=== PATIENT | male | born 1945 | race Asian ===

== ENCOUNTER 2017-01-08 06:47 | Day surgery (SDC) | payer MEDICARE, MEDICAID ==
[~2017-01-08] VITALS: Ht 182.9 cm; Wt 70.0 kg
[2017-01-08] MEDS ORDERED: SODIUM CHLORIDE 0.9% 1,000 ML IV ONE ×2 (07:00)
[2017-01-08 07:32] LABS: GLUCOSE,POINT OF CARE 128 MG/DL (70-110)
[2017-01-08] MEDS ORDERED: FentaNYL CITRATE-PF 100 MCG/2 ML VIAL ONE (07:45)
[2017-01-08] MEDS ORDERED: MIDAZOLAM HCL 2 MG/2 ML VIAL ONE (07:45)
[2017-01-08] MEDS ORDERED: AMIO200T44 GT (08:09)
[2017-01-08] MEDS ORDERED: BUSP10TA23 GT (08:09)
[2017-01-08] MEDS ORDERED: HYPR15DR23 OU (08:09)
[2017-01-08] MEDS ORDERED: AUD NEB (08:09)
[2017-01-08] MEDS ORDERED: DEXT1DRO OU (08:09)
[2017-01-08] MEDS ORDERED: PERID15L MM (08:09)
[2017-01-08] MEDS ORDERED: BACL10TA GT (08:09)
[2017-01-08] MEDS ORDERED: HUM10VIA SQ (08:28)
[2017-01-08] MEDS ORDERED: FAMO20 GT (08:28)
[2017-01-08] MEDS ORDERED: DIPH25 GT (08:28)
[2017-01-08] MEDS ORDERED: BISA10S PR (08:28)
[2017-01-08] MEDS ORDERED: DIGO125T GT (08:28)
[2017-01-08] MEDS ORDERED: IPRA3AMP4 NEB (08:28)
[2017-01-08] MEDS ORDERED: MIDO5 GT (08:28)
[2017-01-08] MEDS ORDERED: MULT-71 GT (08:28)
[2017-01-08] MEDS ORDERED: VENL50TA44 PO (08:31)
[2017-01-08] MEDS ORDERED: METO-296 GT (08:31)
[2017-01-08] MEDS ORDERED: METO-296 PO (08:31)
[2017-01-08] MEDS ORDERED: MethylPREDNISolone SOD SUCC 125 MG/2 ML VIAL IVP ONE (09:15)
[2017-01-08] MEDS ORDERED: MethylPREDNISolone SOD SUCC 125 MG/2 ML VIAL ONE (10:02)
[2017-01-08] MEDS ORDERED: LIDOCAINE HCL 4% 50 ML SOLUTION TP ONE (17:05)
[2017-01-08] MEDS ORDERED: BENZOCAINE 20% 50 MCG/SPRAY 57 GM TP ONE (17:05)
[2017-01-08] MEDS ORDERED: LIDOCAINE HCL 2% 30 ML JELLY TP ONE (17:05)
[2017-01-08] MEDS ORDERED: OXYGEN THERAPY IH SCH (20:00)
== END 2017-01-08 11:00 | disposition home health service (06) ==
LOC: SURGERY 06:47
PROVIDERS: ATTEND Internal Medicine Critical Care Medicine
DX: J38.4 Edema of larynx (principal); B37.0 Candidal stomatitis; Z88.8 Allergy status to other drugs, medicaments and biological substances; Z87.891 Personal history of nicotine dependence; Z87.01 Personal history of pneumonia (recurrent); Z86.73 Personal history of transient ischemic attack (TIA), and cerebral infarction without residual deficits; Z79.899 Other long term (current) drug therapy
CPT/HCPCS: 31623; 31624; 71010; 82962; 87015 ×2; 87070; 87077; 87101; 87186; 87205; 87220; 88108; 88312; 93005; J2250; J2930; J3010; J7030